=== PATIENT | male | born 1950 ===

== ENCOUNTER 2021-01-02 14:33 | Emergency (ER) | payer OTHER ==
[~2021-01-02] VITALS: Ht 172.7 cm; Wt 54.4 kg
[2021-01-02 14:53] VITALS: BP 90/61
[2021-01-02] MEDS ORDERED: SODIUM CHLORIDE 0.9% 1,000 ML IVB ONE (16:15)
[2021-01-02 16:47] LABS: Albumin 3.3 g/dL (3.4-5.0); BUN/Creatinine Ratio 13.8; Calcium 9.1 mg/dL (8.5-10.1); Potassium 3.3 mmol/L (3.5-5.1)
[2021-01-02 16:49] LABS: Basophils # (auto) 0.1 10 ^3/uL (0-0.2); Bilirubin, Total 0.4 mg/dL (0.2-1.0); Eosinophils # (auto) 0.2 10 ^3/uL (0-0.8); Eosinophils % (auto) 5.1 % (0.0-7.0); Hematocrit 42.8 % (41.0-53.0); Hemoglobin 14.1 g/dL (13.5-17.5); Lymphocytes # (auto) 1.6 10 ^3/uL (0.4-5.4); Lymphocytes % (auto) 41.5 % (10.0-50.0); Mean Corpuscular Hemoglobin 31.1 pg (28.0-32.0); Mean Corpuscular Volume 94.4 fL (80.0-100.0); Monocytes # (auto) 0.2 10 ^3/uL (0-1.3); Monocytes % (auto) 6.2 % (0.0-12.0); Neutrophils # (auto) 1.8 10 ^3/uL (1.6-8.6); Neutrophils % (auto) 45.2 % (37.0-80.0); Nucleated Red Blood Cells % 0.1 %; Red Blood Cells 4.54 10^6/uL (4.5-5.90); Red Cell Distribution Width 13.6 % (11.8-14.3); Total Protein 7.2 g/dL (6.4-8.2); White Blood Cell 3.9 10^3/uL (4.4-10.8)
== END 2021-01-04 02:03 | disposition home or self-care (01) ==
LOC: ER 14:33 → EDBD 14:33 → ER 01-04 02:03
DX: R41.82 Altered mental status, unspecified (principal); E86.0 Dehydration; T67.5XXA Heat exhaustion, unspecified, initial encounter; J44.9 Chronic obstructive pulmonary disease, unspecified; F17.210 Nicotine dependence, cigarettes, uncomplicated
CPT/HCPCS: 36415; 80053; 80320; 85025; 93005